=== PATIENT | female | born 1955 | race Caucasian/White ===

== ENCOUNTER 2020-09-02 09:08 | Outpatient (CLI) | payer OTHER, SELFPAY ==
--- NOTE | 2020-09-02 10:30 | NEURO_ITS ---
Patient Number: [id number] Impression: # Complains of cramps and pain in hands. # Early mild Carpal Tunnel Syndrome, left more than right. # No ulnar neuropathy. # Normal needle/EMG exam. Nerve Conduction Studies Anti Sensory Summary Table Stim Site NR Peak (ms) P-T Amp (?V) Site1 Site2 Delta-P (ms) Dist (cm) Srini (m/s) Left Median Anti Sensory (2-3nd Digit) Wrist 3.0 71.4 Wrist 2-3nd Digit 3.0 14.0 47 Wrist 3.1 86.2 Wrist 2-3nd Digit 3.0 14.0 47 Right Median Anti Sensory (2-3nd Digit) Wrist 3.2 36.3 Wrist 2-3nd Digit 3.2 14.0 44 Wrist 3.2 24.9 Wrist 2-3nd Digit 3.2 14.0 44 Left Radial Anti Sensory (Base 1st Digit) Wrist 1.7 42.0 Wrist Base 1st Digit 1.7 0.0 Right Radial Anti Sensory (Base 1st Digit) Wrist 1.9 40.5 Wrist Base 1st Digit 1.9 0.0 Left Ulnar Anti Sensory (5th Digit) Wrist 2.6 81.7 Wrist 5th Digit 2.6 14.0 54 Right Ulnar Anti Sensory (5th Digit) Wrist 2.3 27.3 Wrist 5th Digit 2.3 14.0 61 Motor Summary Table Stim Site NR Onset (ms) O-P Amp (mV) Site1 Site2 Delta-0 (ms) Dist (cm) Srini (m/s) Left Median Motor (Abd Poll Brev) Wrist 3.8 4.8 Elbow Wrist 4.2 26.0 62 Elbow 8.0 4.0 Right Median Motor (Abd Poll Brev) Wrist 3.4 3.5 Elbow Wrist 4.3 25.0 58 Elbow 7.7 3.5 Left Ulnar Motor (Abd Dig Minimi) Wrist 2.5 5.3 A Elbow Wrist 4.6 27.0 59 A Elbow 7.1 4.5 Right Ulnar Motor (Abd Dig Minimi) Wrist 2.4 4.9 A Elbow Wrist 4.5 26.0 58 A Elbow 6.9 3.7 F Wave Studies NR F-Lat (ms) L-R F-Lat (ms) Left Median (Mrkrs) (Abd Poll Brev) 26.56 0.05 Right Median (Mrkrs) (Abd Poll Brev) 26.51 0.05 Left Ulnar (Mrkrs) (Abd Dig Min) 26.25 0.55 Right Ulnar (Mrkrs) (Abd Dig Min) 26.80 0.55 EMG Side Muscle Nerve Root Ins Act Fibs Amp Dur Recrt Comment Right 1stDorInt Ulnar C8-T1 Nml Nml Nml Nml Nml Right Ext Indicis Radial (Post Int) C7-8 Nml Nml Nml Nml Nml Right Ext Digitorum Radial (Post Int) C7-8 Nml Nml Nml Nml Nml Right BrachioRad Radial C5-6 Nml Nml Nml Nml Nml Right PronatorTeres Median C6-7 Nml Nml Nml Nml Nml Right Abd Poll Brev Median C8-T1 Nml Nml Nml Nml Nml Left 1stDorInt Ulnar C8-T1 Nml Nml Nml Nml Nml Left Ext Indicis Radial (Post Int) C7-8 Nml Nml Nml Nml Nml Left Ext Digitorum Radial (Post Int) C7-8 Nml Nml Nml Nml Nml Left BrachioRad Radial C5-6 Nml Nml Nml Nml Nml Left PronatorTeres Median C6-7 Nml Nml Nml Nml Nml Left Abd Poll Brev Median C8-T1 Nml Nml Nml Nml Nml Right ABD Dig Min Ulnar C8-T1 Nml Nml Nml Nml Nml MTDD
== END 2020-09-02 09:09 | disposition home or self-care (01) ==
PROVIDERS: PCP Clinical Nurse Specialist; Visit Provider Clinical Nurse Specialist
DX: G56.03 Carpal tunnel syndrome, bilateral upper limbs (principal)
CPT/HCPCS: 95886; 95911

== ENCOUNTER 2023-03-07 00:32 | Day surgery (SDC) | payer MEDICARE, SELFPAY ==
[2023-02-22 13:05] VITALS: BMI 27.1
--- NOTE | 2023-03-06 11:26 | PM.HPGS ---
History of Present Illness History of Present Illness Consent: Risks, benefits, and alternatives have been discussed and questions answered. Patient agrees to proceed with procedure. Chief complaint: neoplasm screening Narrative: Christelle June is a 67 year old female who was referred for colon cancer screening. This is her 1st colonoscopy. There is a family history in that her mother apparently had colon cancer. Review of Systems Review of Systems: All systems reviewed & are unremarkable except as noted in HPI and below PMFSH Past Medical History Medical History Essential hypertension Hemorrhoids Herpes Hyperlipidemia Hypertension Torn meniscus Surgical History Surgical History History of tonsillectomy Family History Family History Sibling Hypertension Family history of cardiovascular disease Family history of genetic disorder Family history of type 2 diabetes mellitus Family history of malignant neoplasm of ovary Mother , 11/2020 Family history of cardiovascular disease Family history of seizure disorder Carcinoma of colon Father Family history of Alzheimer's disease Social History Social History Social History: caffeine-coffee daily Smoking status: Never smoker Alcohol intake: never Substance use type: does not use Lack of Transportation: No Lack of Food: Never True Current Housing: I Have Housing Concerned About Future Housing: No Difficulty Paying Gas/Electric Bills: No Difficulty Paying for Meds: No Currently Unemployed: No Education: Bachelor's Degree Difficulty w/ Childcare or Family Care: No Living arrangements: with family Spiritual care concerns: No Meds Home Medications and Allergies Home Medications Medication Instructions Recorded Confirmed Type hydrocortisone 2.5 % topical cream 1 applic RECTAL DAILY PRN 10/11/21 03/07/23 Rx with perineal applicator hemorrhoids #30 grams (Proctosol HC) atorvastatin 10 mg tablet 10 mg PO QHS #90 tabs 09/14/22 03/07/23 Rx cholecalciferol (vitamin D3) 50 100 mcg PO DAILY 10/23/22 03/07/23 History mcg (2,000 unit) tablet (Vitamin D3) multivitamin with minerals-folic 1 tablet PO DAILY 10/23/22 03/07/23 History acid 200 mcg chewable tablet (Adult Multivitamin Gummies) omeprazole 20 mg tablet,delayed 20 mg PO DAILY #90 tabs 10/23/22 03/07/23 Rx release elderberry fruit 50 mg/5 mL oral 50 mg PO DAILY 01/24/23 03/07/23 History syrup (Sambucus Elderberry Original) mv-min-vit C-ascorb 1 tablet PO DAILY 01/24/23 03/07/23 History Jx-Qoh-Ubk-herb #124 333 mg-1.7 mg chewable tablet (Airborne (ascorbate sodium)) losartan 100 mg tablet 100 mg PO DAILY #90 tabs 02/08/23 03/07/23 Rx Total Beets 1 gummy PO DAILY 02/22/23 03/07/23 History Allergies Allergy/AdvReac Type Severity Reaction Status Date / Time pertussis vaccine,adsorbed Allergy Mild Goose egg Verified 03/07/23 06:54 on arm Exam Resp: Auscultation: clear to auscultation bilaterally Cardio: Rate: regular rate Rhythm: regular rhythm GI: GI Palp: Yes Soft to palpation and No Tenderness to palpation present (GI) Assessment and Plan Assessment and plan (1) Screening for colon cancer: Code(s): Z12.11 - Encounter for screening for malignant neoplasm of colon Status: Acute Assessment and Plan: Colonoscopy with possible biopsy or polypectomy or cautery or injection of substances.
[2023-03-07 06:57] VITALS: BP 162/85; PULSE 65; RESP 16; TEMP 36.6; O2SAT 98
[2023-03-07] MEDS: LACTATED RINGERS 1,000 ML 150 ML IV CONT (07:05)
--- NOTE | 2023-03-07 07:35 | WPDANESEPPF ---
Anes - Initial Pre Proc Eval Procedure: Operation Date: 03/07/23 08:15 Proposed Procedures p Screening Colonoscopy - Arnold Simmons MD Date/Time: 03/07/23 07:35 Surgeon: Arnold Simomns MD Pre Op Diagnosis: neoplasm screening Patient Data Age: 67 Gender: F Height: 1.65 m Weight: 72.3 kg Last Vital Signs Temp 97.8 F 03/07/23 06:57 Pulse 65 03/07/23 06:57 Resp 16 03/07/23 06:57 BP 162/85 H 03/07/23 06:57 Pulse Ox 98 03/07/23 06:57 O2 Del Method Room Air 03/07/23 06:57 Allergies Allergy/AdvReac Type Severity Reaction Status Date / Time pertussis vaccine,adsorbed Allergy Mild Goose egg Verified 03/07/23 06:54 on arm Home Medications Medication Instructions Recorded Confirmed Type hydrocortisone 2.5 % topical cream 1 applic RECTAL DAILY PRN 10/11/21 03/07/23 Rx with perineal applicator hemorrhoids #30 grams (Proctosol HC) atorvastatin 10 mg tablet 10 mg PO QHS #90 tabs 09/14/22 03/07/23 Rx cholecalciferol (vitamin D3) 50 100 mcg PO DAILY 10/23/22 03/07/23 History mcg (2,000 unit) tablet (Vitamin D3) multivitamin with minerals-folic 1 tablet PO DAILY 10/23/22 03/07/23 History acid 200 mcg chewable tablet (Adult Multivitamin Gummies) omeprazole 20 mg tablet,delayed 20 mg PO DAILY #90 tabs 10/23/22 03/07/23 Rx release elderberry fruit 50 mg/5 mL oral 50 mg PO DAILY 01/24/23 03/07/23 History syrup (Sambucus Elderberry Original) mv-min-vit C-ascorb 1 tablet PO DAILY 01/24/23 03/07/23 History Eq-Gar-Ppt-herb #124 333 mg-1.7 mg chewable tablet (Airborne (ascorbate sodium)) losartan 100 mg tablet 100 mg PO DAILY #90 tabs 02/08/23 03/07/23 Rx Total Beets 1 gummy PO DAILY 02/22/23 03/07/23 History Patient hx anesthesia problems: none Family hx anesthesia problems: none Results Review: All pre-operative results and documents have been reviewed as part of the pre-operative evaluation. [facility] Past Medical History Medical History Essential hypertension Hemorrhoids Herpes Hyperlipidemia Hypertension Torn meniscus Surgical History Surgical History History of tonsillectomy Family History Family History Sibling Hypertension Family history of cardiovascular disease Family history of genetic disorder Family history of type 2 diabetes mellitus Family history of malignant neoplasm of ovary Mother , 11/2020 Family history of cardiovascular disease Family history of seizure disorder Carcinoma of colon Father Family history of Alzheimer's disease Social History Social History Social History: caffeine-coffee daily Smoking status: Never smoker Alcohol intake: never Substance use type: does not use Lack of Transportation: No Lack of Food: Never True Current Housing: I Have Housing Concerned About Future Housing: No Difficulty Paying Gas/Electric Bills: No Difficulty Paying for Meds: No Currently Unemployed: No Education: Bachelor's Degree Difficulty w/ Childcare or Family Care: No Living arrangements: with family Spiritual care concerns: No Anes - Eval Final PreProcedure Day of Procedure 03/07/23 07:35 Patient weight: normal Heart: regular rate and rhythm Lungs: clear to auscultation Airway: Mallampati scale class II Neurological: alert and oriented Last oral intake: >/= 8 hours ASA classification: II Emergent: no Anesthetic plan: proceed Anesthesia type and monitoring: general GIVS and standard monitoring Results Review: All pre-operative results and documents have been reviewed as part of the pre-operative evaluation. Informed Consent: The patient's anesthetic plan and its attendant risks and benefits were discussed with the patient/fa
[2023-03-07 08:22] VITALS: BP 119/70; PULSE 60; RESP 18; O2SAT 98
[2023-03-07 08:32] VITALS: BP 108/71; PULSE 54; RESP 16; O2SAT 98
[2023-03-07 08:42] VITALS: BP 130/80; PULSE 56; RESP 18; O2SAT 99
== END 2023-03-07 08:49 | disposition home or self-care (01) ==
PROVIDERS: PCP Internal Medicine; Visit Provider Internal Medicine Gastroenterology
PROC: 0DJD8ZZ Inspection of Lower Intestinal Tract, Via Natural or Artificial Opening Endoscopic (ICD-10-PCS; CPT 45378; principal; 2023-03-07 08:15)
DX: Z12.11 Encounter for screening for malignant neoplasm of colon (principal); K57.30 Diverticulosis of large intestine without perforation or abscess without bleeding; K64.8 Other hemorrhoids; I10 Essential (primary) hypertension; E78.5 Hyperlipidemia, unspecified; Z80.0 Family history of malignant neoplasm of digestive organs
CPT/HCPCS: G0105; J2704; J7120

== ENCOUNTER 2023-03-28 09:35 | Outpatient (CLI) | payer MEDICARE, SELFPAY ==
--- NOTE | 2023-04-06 20:29 | WPDHOMESLEEP ---
Sleep Study - Home Unattended Date of Study: 03/28/23 Ordering Provider: Lidya Cesar NP Interpreting Provider: Chelo Millard, DO Home Sleep Study Type: Watch PAT Height: 1.65 m Weight: 72.121 kg Body Mass Index: 26.4 Neck Circumference (inches): 14 Dewy Rose: 8 Reason for Sleep Study Loud snoring Sleep History The patient is a 67-year-old female with hypertension, hyperlipidemia and heartburn that had a sleep study ordered by her primary care for evaluation of sleep apnea. The patient denies awakening from sleep short of breath. He rarely awakens at night with heartburn, belching or cough. She constantly snores loudly enough that others complain. She occasionally has trouble sleeping when she has a cold. She denies waking up gasping for air throughout the night. She constantly has breathing problems at night observed by herself or others. She rarely sweats excessively at night. She denies having heart palpitations or irregular heartbeats during the night. She denies falling asleep during the day and while driving. She denies sleep paralysis, cataplexy and hypnagogic / hypnopompic hallucinations. She denies having trouble at school or work due to sleepiness. She denies feeling afraid of going to sleep. She rarely has nightmares rarely remembers her dreams. She occasionally has thoughts racing through her mind. She rarely feels sad or depressed. She occasionally has anxiety. She denies noticing parts of her body jerk. She denies having muscular tension. She denies kicking during the night. She occasionally has crawling and aching feelings in her legs and occasionally has leg pain during the night. She denies grinding her teeth during sleep and denies awakening with morning jaw pain. She is frequently bothered by pain during the day and occasionally awakened by pain during the night. She rarely wakes up feeling stiff in morning. She denies waking up with sore or achy muscles. She rarely wakes up with pain in the neck, spine or other joints. She goes to bed at 10:00 p.m. on both weekdays and weekends. It takes her 5 minutes to fall asleep. She wakes up once at most throughout the night to urinate and is able to fall asleep within a few minutes. She wakes up between :530-6 a.m. on both weekdays and weekends. She typically gets 7-9 hours of sleep per night. She does not stay in bed after waking up in the morning. She currently lives with her . She does not consume any caffeinated beverages within 2 hours of bedtime. She does not engage in physical exercise before bedtime. She will occasionally watch television before falling asleep. She denies taking naps in the afternoon or the evening. She drinks 16 oz of caffeinated beverage per day. She denies tobacco, alcohol recreational drug PMFSH Past Medical History Medical History Essential hypertension Hemorrhoids Herpes Hyperlipidemia Hypertension Torn meniscus Surgical History Surgical History History of tonsillectomy Family History Family History Sibling Hypertension Family history of cardiovascular disease Family history of genetic disorder Family history of type 2 diabetes mellitus Family history of malignant neoplasm of ovary Mother , 11/2020 Family history of cardiovascular disease Family history of seizure disorder Carcinoma of colon Father Family history of Alzheimer's disease Social History Social History Social History: caffeine-coffee daily Smoking status: Never smoker Alcohol intake: never Substance use type: does not use Lack of Transportation: No Lack of Food: Never True Current Housing: I Have Housing Concerned About Future Housing: No Difficulty Paying
[2023-04-06 20:39] VITALS: BMI 26.4
== END 2023-03-29 12:15 | disposition home or self-care (01) ==
LOC: ANHCSM 09:36
PROVIDERS: PCP Internal Medicine; Visit Provider Nurse Practitioner
DX: R40.0 Somnolence (principal); G47.33 Obstructive sleep apnea (adult) (pediatric)
CPT/HCPCS: 95800

== ENCOUNTER → 2023-04-06 12:18 | Outpatient (CLI) | payer MEDICARE, SELFPAY ==
--- NOTE | ~2023-04-06 | MM_ITS ---
EXAMINATION: MM screening [facility] BI w nataliia HISTORY: Screening mammogram TECHNIQUE: Craniocaudal and mediolateral oblique 3-D tomosynthesis images were obtained and synthetic 2-D images were generated. CAD analysis was submitted and interpreted. COMPARISON: 03/01/2018, 02/15/2018 BREAST PARENCHYMAL COMPOSITION: There are scattered areas of fibroglandular density. FINDINGS: No suspicious mass, calcification, or architectural distortion are identified in either danie ast to suggest malignancy. There has been no suspicious interval change. IMPRESSION: 1. No mammographic evidence of malignancy. 2. Recommend routine screening mammography in one year. BI-RADS Category 1: Negative Reviewed, dictated and finalized at location A.
--- NOTE | ~2023-04-06 | DEXA_ITS ---
Bone Density Report Name: GRACE IRIZARRY Age: 67 Sex: Female Ethnicity: White Date of : 1955 Indication: postmenopausal; screening for osteoporosis; height loss; Referring Provider: Hali Littlejohn Study: Bone densitometry was performed. Exam Date: April 06, 2023 Accession number: [id number] Bone Density: Region BMD T-score Z-score Classification AP Spine (L1-L4) 0.823 -2.0 -0.1 Osteopenia Femoral Neck (Left) 0.789 -0.5 1.1 Normal Total Hip (Left) 0.953 0.1 1.5 Normal Femoral Neck (Right) 0.726 -1.1 0.6 Osteopenia Total Hip (Right) 0.835 -0.9 0.5 Normal Total Hip Mean 0.894 -0.4 1.0 Normal World Health Organization criteria for BMD impression classify patients as: Normal (T-score at or above -1.0), Osteopenia (T-score between -1.0 and -2.5), or Osteoporosis (T-score at or below -2.5). 10-year Fracture Risk(1): Major Osteoporotic Fracture 8.8% Hip Fracture 0.8% Reported Risk Factors: [place] (), Neck BMD=0.726, BMI=26.9 (1) FRAX(R) Version 3.08. Fracture probability calculated for an untreated patient. Fracture probability may be lower if the patient has received treatment. Clinical Information Provided by Patient: Has used the following medications: Vitamin D Patient maximum height was 65 Menopause Age: 53 Drinks caffeinated beverages Onset of menses at age 12 Number of children 2 Impression: The patient has low bone mass, based on the Total Spine T-score. The patient has an estimated ten-year risk of hip fracture of 0.8% and an estimated ten-year risk of major fracture of 8.8%, based on the WHO FRAX algorithm. Discussion: BONE DENSITY IS LOW AT ONE OR MORE SKELETAL SITES. This patient's lowest T-score is low at one or more skeletal sites. It meets the World Health Organization's (WHO) criteria for ?low bone mass? (T-score between -1.0 and -2.5). The patient's 10-year risk of fracture as calculated by FRAX is less than the threshold where pharmacological therapy is recommended by the National Osteoporosis Foundation (NOF). However, all treatment decisions require clinical judgment and consideration of individual patient factors, including patient preferences, comorbidities, previous drug use, risk factors not captured in the FRAX model (e.g., frailty, falls, vitamin D deficiency, increased bone turnover, interval significant decline in bone density) and possible under or overestimation of fracture risk by FRAX. The patient should follow a healthful lifestyle (good nutrition with adequate calcium and vitamin D, and appropriate weight-bearing exercise). Follow-Up: Consider repeating this study in 2 to 3 years to reassess this patient's status, or sooner if there is some new clinical indication. Reported by: [facility] on 04/06/2023 12:54:00 PM.
== END ==
PROVIDERS: PCP Nurse Practitioner; Visit Provider Nurse Practitioner
DX: Z12.31 Encounter for screening mammogram for malignant neoplasm of breast (principal); Z78.0 Asymptomatic menopausal state; M85.88 Other specified disorders of bone density and structure, other site; M85.851 Other specified disorders of bone density and structure, right thigh
CPT/HCPCS: 77063; 77067; 77080

== ENCOUNTER 2025-04-08 14:12 | Outpatient (CLI) | payer MEDICARE, SELFPAY ==
--- NOTE | ~2025-04-08 | XR_ITS ---
EXAMINATION: XR chest 2V 04/08/2025 14:24 INDICATION: Cough PROCEDURE: 2 view chest COMPARISON: 10/17/2010 FINDINGS: The lungs are clear. The cardiomediastinal silhouette is within normal limits. There are no pleural effusions. There is no pneumothorax suspected. IMPRESSION: 1: NO ACUTE CARDIOPULMONARY DISEASE. Reviewed, dictated and finalized at location B.
== END 2025-04-08 14:13 | disposition home or self-care (01) ==
LOC: GOSHIMG 14:13
PROVIDERS: PCP Nurse Practitioner; Visit Provider Nurse Practitioner
DX: R05.9 Cough, unspecified (principal)
CPT/HCPCS: 71046

== ENCOUNTER 2025-04-27 09:52 | Outpatient (CLI) | payer MEDICARE, SELFPAY ==
--- NOTE | ~2025-04-27 | XR_ITS ---
Left Knee Technique: AP, lateral, and sunrise views were obtained. Clinical History: Pain Findings: No fracture or dislocation is seen. Osseous alignment is anatomic. Joint spaces are preserv ed, with minimal degenerative spurring. Probable small joint effusion is seen. Impression: Minimal degenerative change. Probable small joint effusion. Reviewed, dictated and finalized at [facility]. Impression: Minimal degenerative change. Probable small joint effusion.
== END 2025-04-27 09:53 | disposition home or self-care (01) ==
LOC: GOSHIMG 09:52
PROVIDERS: PCP Nurse Practitioner; Visit Provider Nurse Practitioner
DX: M25.562 Pain in left knee (principal)
CPT/HCPCS: 73562

== ENCOUNTER 2025-09-22 09:00 | Outpatient (RCR) | payer MEDICARE, SELFPAY ==
--- NOTE | 2025-08-03 09:47 | OPREHPOC ---
Outpatient Therapy Plan of Care This is a Multidisciplinary Plan of Care that may contain components documented by all disciplines (PT, OT, and ST.) PT Problem 1 PT Problem #1 Knowledge Deficit PT Goal 1 Goal / Goal Update 1. Patient to demonstrate independence with HEP for improved self-reliance of symptom management. Target Visit 4 PT Problem 2 PT Problem #2 Pain PT Goal 1 Goal / Goal Update 1. Patient to decrease subjective reports of pain to <2/10 for improved ADL tolerance. 2. Pt will report a return to daily exercising without increasing pain levels. 3. Pt will increase LEFS score by at least 9 points in order to demonstrate the minimal clinically important difference (MCID) in functional improvement. Target Visit 8 PT Problem 3 PT Problem #3 Impaired Flexibility PT Goal 1 Goal / Goal Update 1. Patient will demonstrate an increase in hamstring flexibility, improving passive knee extension in the 90/90 position from to within -20 ? of full extension to allow for improved sitting posture and reduced strain during gait. 2. Patient to demonstrate an increase in bilateral gastrocnemius length to allow for > 10 degrees of dorisflexion to improve flexibility required for gait. Target Visit 8 PT Problem 4 PT Problem #4 Impaired Strength PT Goal 1 Goal / Goal Update 1. Patient will demonstrate improved strength of the bilateral hip abductors and extensors to 4/5 on manual muscle testing in order to improve gait stability and stair negotiation. Target Visit 8
--- NOTE | 2025-08-03 09:47 | PTOPEVAL1 ---
Assessment and note entered by Andrés Ruiz PT Evaluation Information Assessment Status Evaluation ICD-10 Condition Codes (PT) Pain in low back M54.50,Radiculopathy, lumbar region M54.16,Pain in left knee M25.562 Onset chronic Subjective Information Pt reports she has THOMAS knee pain L > R. Pt states the L knee has pain in the back of the knee and she is unsure if it is a sciatica pain. Pt states she has a history back pain but denies recent numbness and tingling. Pt states she has the greatest difficulties prolonged walking, sitting, going up and down stairs. Pt had a recent x ray showing some swelling and mild OA. Pt has a history of L knee meniscus tear 15 + years ago but no recent injuries. Reported Pain Level Pain Score 2,1: Self Report Assessment PT Clinical Summary Patient presents to physical therapy with a primary issue of Thomas knee and low back pain for over a year. Patient has history of L meniscus surgery, updated x ray show minimal degenerative and swelling. Patient demonstrates lateral hip and glute weakness, decreased mobility, and decreased flexibility that limit their ability to perform activities of daily living and functional movements. Patient will benefit from skilled physical therapy to address the above listed deficits and return to prior level of function. Home exercise program instructed and written handout provided, exercises tolerated well with no adverse effects to note post-session. Patient was educated on importance of adherence to home exercise program. Patient was also educated on anatomy, prognosis, home modalities, and plan of care Plan of Care Interventions Electrical Stimulation,Hot Pack/Cold Pack,Manual Therapy,Neuro Re-education,Therapeutic Activities, Therapeutic Exercise,Ultrasound,Other PT Services Indicated Yes Treatment Frequency and 2x week 8 visits Duration These treatments will address the objective and functional deficits as defined above. The patient will be advanced safely and appropriately in order for the patient to progress towards his/her prior level of function. Additional exercises will be introduced and as well as a comprehensive home exercise program upon discharge, if needed, ?to ensure carryover of functional gains achieved in the clinic. This treatment plan has been reviewed and agreement upon by the patient.
--- NOTE | 2025-09-01 09:22 | PTOPPROG ---
Assessment and note entered by Andrés Ruiz, PT Evaluation Information Assessment Status Progress ICD-10 Condition Codes (PT) Pain in low back M54.50,Radiculopathy, lumbar region M54.16,Pain in left knee M25.562 Onset chronic Subjective Information Pt reports she is having a not good day today. She notes she continued to have discomfort following her last visit. Pt notes then on Sunday she was sitting on a hard bench and that night had intense pain on the posterior medial side of the knee. Pt states heat helps relieve the pain and it seems to be aggravated by prolonged sitting and certain exercises such as banded side steps. Pt would like to continue physical therapy and is motivated to resolve pain. Assessment PT Clinical Summary The patient demonstrates measurable progress in lower extremity strength and flexibility, evidenced by improved manual muscle testing scores and increased hamstring length. However, the patient's primary complaint of left posteromedial knee pain persists, limiting functional activities . The clinical presentation suggests involvement of both sacral nerve root irritation, likely contributing to radiating symptoms (sciatica), and localized medial hamstring tendinopathy near the knee insertion. These continuing impairments significantly restrict the patient's functional mobility and activity level. Given the demonstrated potential for improvement, the patient requires continued skilled physical therapy to address the dual nature of these deficits and facilitate a return to their prior level of function. Plan of Care Interventions Electrical Stimulation,Hot Pack/Cold Pack,Manual Therapy,Neuro Re-education,Therapeutic Activities, Therapeutic Exercise,Ultrasound,Other PT Services Indicated Yes Treatment Frequency and 1x week 6 visits. Duration These treatments will address the objective and functional deficits as defined above. The patient will be advanced safely and appropriately in order for the patient to progress towards his/her prior level of function. Additional exercises will be introduced and as well as a comprehensive home exercise program upon discharge, if needed, ?to ensure carryover of functional gains achieved in the clinic. This treatment plan has been reviewed and agreement upon by the patient.
--- NOTE | 2025-09-15 09:21 | PCPTNOTE ---
Pt no call/no showed her appointment today
--- NOTE | 2025-09-15 12:16 | PCPTNOTE ---
Pt called to cancel her appointment due to illness
--- NOTE | 2025-10-12 08:48 | PTOPDC ---
Assessment and note entered by Andrés Ruiz, PT Evaluation Information Assessment Status Discharge - Pt Not Present ICD-10 Condition Codes (PT) Pain in low back M54.50,Radiculopathy, lumbar region M54.16,Pain in left knee M25.562 Onset chronic Subjective Information Pt called and requested to cancel her last appointment and be discharged from therapy. She reports she has seen progress with therapy but needs to be discharged for personal reasons at this time. Assessment PT Clinical Summary Pt to be discharged from Physical therapy after completing POC except for re-assessment. Pt reports improvements but had to cancel last appointment due to personal reasons and is unable to reschedule. Plan of Care PT Services Indicated No
== END 2025-10-12 16:13 | disposition home or self-care (01) ==
LOC: ANHGOSHPT 09:00
PROVIDERS: PCP Nurse Practitioner; Visit Provider Nurse Practitioner
DX: M25.562 Pain in left knee (principal); M25.561 Pain in right knee; M54.16 Radiculopathy, lumbar region; M54.50 Low back pain, unspecified
CPT/HCPCS: 97110; 97112; 97140; 97161; 97530; 97750